=== PATIENT | male | born 1935 | race Caucasian/White ===

== ENCOUNTER 2022-10-05 18:13 | Inpatient (IN) | payer MEDICARE, BC ==
[2022-10-05] MEDS ORDERED: Loperamide HCl 2 MG CAP PO PRN (20:30)
[2022-10-05] MEDS ORDERED: Albuterol 200 PUFF (6.7GM INHALER) INH PRN (20:30)
[2022-10-05] MEDS ORDERED: Ondansetron ODT 4 MG TAB PO PRN (20:35)
[2022-10-05] MEDS ORDERED: HYDROcodone/Acetaminophen 10/325 mg Tablet PO PRN (20:35)
[2022-10-05] MEDS: Lisinopril 20 MG TAB PO SCH (22:32)
[2022-10-05] MEDS: Temazepam 15 MG CAP PO PRN (22:32)
[2022-10-05] MEDS: Sodium Bicarbonate Tab 325 MG TAB PO SCH (22:33)
[2022-10-05] MEDS: Metoprolol Tartrate 25 MG TAB PO SCH (22:33)
[2022-10-05] MEDS: Apixaban 2.5 MG TAB PO SCH (22:33)
[2022-10-05] MEDS: Guaifenesin DM 100-10/5 ML UDCUP PO PRN (22:50)
[2022-10-06] MEDS ORDERED: cefTRIAXone\\ROCEPHIN 2 GM VIAL IVPB SCH (08:00)
[2022-10-06] MEDS: Sodium Bicarbonate Tab 325 MG TAB PO SCH ×3 (09:42→20:50)
[2022-10-06] MEDS: Saccharomyces boulardii 250 MG CAP PO SCH (09:43)
[2022-10-06] MEDS: Dronedarone HCl 400 MG TAB PO SCH ×2 (09:43→17:08)
[2022-10-06] MEDS: Amlodipine 5 MG TAB PO SCH (09:43)
[2022-10-06] MEDS: Zinc Sulfate 220 MG CAP PO SCH (09:43)
[2022-10-06] MEDS: Dexamethasone 4 mg/ml Vial SLOW IVP SCH (09:44)
[2022-10-06] MEDS: Cholecalciferol (Vitamin D3) 400 UNITS TAB PO SCH (09:44)
[2022-10-06] MEDS: Lisinopril 20 MG TAB PO SCH ×2 (09:44→20:50)
[2022-10-06] MEDS: Apixaban 2.5 MG TAB PO SCH ×2 (09:45→20:50)
[2022-10-06] MEDS: cefTRIAXone\\ROCEPHIN 2 GM in Sodium Chloride 0.9% 100 ML IVPB SCH (09:45)
[2022-10-06] MEDS: Metoprolol Tartrate 25 MG TAB PO SCH ×2 (10:06→20:51)
[2022-10-06] MEDS: Guaifenesin DM 100-10/5 ML UDCUP PO PRN (20:50)
[2022-10-06] MEDS: Albuterol 200 PUFF (6.7GM INHALER) INH PRN (20:51)
[2022-10-06] MEDS: Temazepam 15 MG CAP PO PRN (21:51)
[2022-10-07] MEDS: Dexamethasone 4 mg/ml Vial SLOW IVP SCH (09:02)
[2022-10-07] MEDS: Amlodipine 5 MG TAB PO SCH (09:04)
[2022-10-07] MEDS: Cholecalciferol (Vitamin D3) 400 UNITS TAB PO SCH (09:04)
[2022-10-07] MEDS: Dronedarone HCl 400 MG TAB PO SCH ×2 (09:04→17:22)
[2022-10-07] MEDS: Apixaban 2.5 MG TAB PO SCH ×2 (09:04→20:44)
[2022-10-07] MEDS: Zinc Sulfate 220 MG CAP PO SCH (09:04)
[2022-10-07] MEDS: Sodium Bicarbonate Tab 325 MG TAB PO SCH ×3 (09:04→20:44)
[2022-10-07] MEDS: Saccharomyces boulardii 250 MG CAP PO SCH (09:05)
[2022-10-07] MEDS: Lisinopril 20 MG TAB PO SCH ×2 (09:05→20:43)
[2022-10-07] MEDS: cefTRIAXone\\ROCEPHIN 2 GM in Sodium Chloride 0.9% 100 ML IVPB SCH (09:05)
[2022-10-07] MEDS: Albuterol 200 PUFF (6.7GM INHALER) INH PRN (09:14)
[2022-10-07] MEDS: Metoprolol Tartrate 25 MG TAB PO SCH (09:15)
[2022-10-07] MEDS: Temazepam 15 MG CAP PO PRN (20:44)
[2022-10-08] MEDS: Metoprolol Tartrate 25 MG TAB PO SCH ×3 (02:57→21:11)
[2022-10-08] MEDS: Dexamethasone 4 mg/ml Vial SLOW IVP SCH (09:21)
[2022-10-08] MEDS: cefTRIAXone\\ROCEPHIN 2 GM in Sodium Chloride 0.9% 100 ML IVPB SCH (09:21)
[2022-10-08] MEDS: Saccharomyces boulardii 250 MG CAP PO SCH (09:24)
[2022-10-08] MEDS: Sodium Bicarbonate Tab 325 MG TAB PO SCH ×3 (09:24→21:07)
[2022-10-08] MEDS: Zinc Sulfate 220 MG CAP PO SCH (09:24)
[2022-10-08] MEDS: Lisinopril 20 MG TAB PO SCH ×2 (09:24→21:11)
[2022-10-08] MEDS: Cholecalciferol (Vitamin D3) 400 UNITS TAB PO SCH (09:24)
[2022-10-08] MEDS: Apixaban 2.5 MG TAB PO SCH ×2 (09:24→21:07)
[2022-10-08] MEDS: Dronedarone HCl 400 MG TAB PO SCH ×2 (09:25→17:12)
[2022-10-08] MEDS: Amlodipine 5 MG TAB PO SCH (09:25)
[2022-10-08] MEDS ORDERED: HYDROcodone/Acetaminophen 10/325 mg Tablet PO PRN (12:40)
[2022-10-08] MEDS: Temazepam 15 MG CAP PO PRN (21:07)
[2022-10-09] MEDS: Sodium Bicarbonate Tab 325 MG TAB PO SCH ×3 (08:08→21:21)
[2022-10-09] MEDS: Apixaban 2.5 MG TAB PO SCH ×2 (08:08→21:21)
[2022-10-09] MEDS: Dronedarone HCl 400 MG TAB PO SCH ×2 (08:08→17:01)
[2022-10-09] MEDS: Saccharomyces boulardii 250 MG CAP PO SCH (08:08)
[2022-10-09] MEDS: Zinc Sulfate 220 MG CAP PO SCH (08:08)
[2022-10-09] MEDS: Cholecalciferol (Vitamin D3) 400 UNITS TAB PO SCH (08:08)
[2022-10-09] MEDS ORDERED: Dexamethasone 4 mg/ml Vial SLOW IVP SCH (09:00)
[2022-10-09] MEDS: Amlodipine 5 MG TAB PO SCH (09:21)
[2022-10-09] MEDS: Lisinopril 20 MG TAB PO SCH (09:38)
[2022-10-09] MEDS: Metoprolol Tartrate 25 MG TAB PO SCH (09:38)
[2022-10-09] MEDS ORDERED: Lisinopril 20 MG TAB PO SCH (10:00)
[2022-10-09] MEDS: Temazepam 15 MG CAP PO PRN (21:21)
[2022-10-10] MEDS: Dexamethasone 4 MG TAB PO SCH (09:15)
[2022-10-10] MEDS: Sodium Bicarbonate Tab 325 MG TAB PO SCH ×3 (09:15→21:22)
[2022-10-10] MEDS: Dronedarone HCl 400 MG TAB PO SCH ×2 (09:15→17:22)
[2022-10-10] MEDS: Apixaban 2.5 MG TAB PO SCH ×2 (09:16→21:23)
[2022-10-10] MEDS: Zinc Sulfate 220 MG CAP PO SCH (09:16)
[2022-10-10] MEDS: Saccharomyces boulardii 250 MG CAP PO SCH (09:16)
[2022-10-10] MEDS: Lisinopril 20 MG TAB PO SCH (09:16)
[2022-10-10] MEDS: Cholecalciferol (Vitamin D3) 400 UNITS TAB PO SCH (09:16)
[2022-10-10] MEDS: Guaifenesin DM 100-10/5 ML UDCUP PO PRN (15:37)
[2022-10-10] MEDS: Benzonatate 100 MG CAP PO PRN (21:22)
[2022-10-10] MEDS: Senokot S 8.6-50 MG TAB PO SCH (21:22)
[2022-10-10] MEDS: Acetaminophen 325 MG TAB PO PRN (21:23)
[2022-10-10] MEDS: Temazepam 15 MG CAP PO PRN (21:23)
[2022-10-11] MEDS: Dexamethasone 4 MG TAB PO SCH (08:50)
[2022-10-11] MEDS: Lisinopril 20 MG TAB PO SCH (08:51)
[2022-10-11] MEDS: Senokot S 8.6-50 MG TAB PO SCH ×2 (08:51→21:28)
[2022-10-11] MEDS: Dronedarone HCl 400 MG TAB PO SCH ×2 (08:51→17:27)
[2022-10-11] MEDS: Cholecalciferol (Vitamin D3) 400 UNITS TAB PO SCH (08:51)
[2022-10-11] MEDS: Sodium Bicarbonate Tab 325 MG TAB PO SCH ×4 (08:51→21:28)
[2022-10-11] MEDS: Apixaban 2.5 MG TAB PO SCH ×2 (08:51→21:28)
[2022-10-11] MEDS: Zinc Sulfate 220 MG CAP PO SCH (08:51)
[2022-10-11] MEDS: Saccharomyces boulardii 250 MG CAP PO SCH (08:51)
[2022-10-11] MEDS: Guaifenesin DM 100-10/5 ML UDCUP PO PRN ×2 (08:56→17:27)
[2022-10-11] MEDS: Benzonatate 100 MG CAP PO PRN (21:27)
[2022-10-11] MEDS: Temazepam 15 MG CAP PO PRN (21:28)
[2022-10-12] MEDS: Zinc Sulfate 220 MG CAP PO SCH (08:10)
[2022-10-12] MEDS: Saccharomyces boulardii 250 MG CAP PO SCH (08:10)
[2022-10-12] MEDS: Dronedarone HCl 400 MG TAB PO SCH ×2 (08:10→16:11)
[2022-10-12] MEDS: Dexamethasone 4 MG TAB PO SCH (08:10)
[2022-10-12] MEDS: Sodium Bicarbonate Tab 325 MG TAB PO SCH ×3 (08:10→20:33)
[2022-10-12] MEDS: Cholecalciferol (Vitamin D3) 400 UNITS TAB PO SCH (08:11)
[2022-10-12] MEDS: Senokot S 8.6-50 MG TAB PO SCH ×3 (08:11→20:37)
[2022-10-12] MEDS: Lisinopril 20 MG TAB PO SCH ×2 (08:11→20:46)
[2022-10-12] MEDS: Apixaban 2.5 MG TAB PO SCH ×2 (08:11→20:33)
[2022-10-12] MEDS: Temazepam 15 MG CAP PO PRN (20:46)
[2022-10-13] MEDS: Apixaban 2.5 MG TAB PO SCH ×2 (09:15→20:37)
[2022-10-13] MEDS: Senokot S 8.6-50 MG TAB PO SCH ×2 (09:15→20:49)
[2022-10-13] MEDS: Sodium Bicarbonate Tab 325 MG TAB PO SCH ×3 (09:15→20:37)
[2022-10-13] MEDS: Saccharomyces boulardii 250 MG CAP PO SCH (09:15)
[2022-10-13] MEDS: Zinc Sulfate 220 MG CAP PO SCH (09:15)
[2022-10-13] MEDS: Cholecalciferol (Vitamin D3) 400 UNITS TAB PO SCH ×2 (09:15→09:47)
[2022-10-13] MEDS: Dexamethasone 4 MG TAB PO SCH (09:15)
[2022-10-13] MEDS: Lisinopril 20 MG TAB PO SCH ×3 (09:45→21:45)
[2022-10-13] MEDS: Dronedarone HCl 400 MG TAB PO SCH ×2 (09:47→17:09)
[2022-10-13] MEDS: Metoprolol Tartrate 25 MG TAB PO SCH ×2 (12:39→20:33)
[2022-10-13] MEDS: Temazepam 15 MG CAP PO PRN (20:37)
[2022-10-13] MEDS: Albuterol 200 PUFF (6.7GM INHALER) INH PRN (20:38)
[2022-10-14] MEDS: Apixaban 2.5 MG TAB PO SCH ×2 (08:25→20:21)
[2022-10-14] MEDS: Sodium Bicarbonate Tab 325 MG TAB PO SCH ×2 (08:25→15:06)
[2022-10-14] MEDS: Lisinopril 20 MG TAB PO SCH ×2 (08:25→23:51)
[2022-10-14] MEDS: Dronedarone HCl 400 MG TAB PO SCH ×2 (08:25→17:07)
[2022-10-14] MEDS: Saccharomyces boulardii 250 MG CAP PO SCH (08:26)
[2022-10-14] MEDS: Zinc Sulfate 220 MG CAP PO SCH (08:26)
[2022-10-14] MEDS: Senokot S 8.6-50 MG TAB PO SCH ×2 (08:26→20:23)
[2022-10-14] MEDS: Cholecalciferol (Vitamin D3) 400 UNITS TAB PO SCH (08:26)
[2022-10-14] MEDS: Metoprolol Tartrate 25 MG TAB PO SCH ×2 (12:34→20:23)
[2022-10-14] MEDS ORDERED: Hydrochlorothiazide 25 MG TAB PO SCH (13:00)
[2022-10-14] MEDS: Albuterol 200 PUFF (6.7GM INHALER) INH PRN (20:21)
[2022-10-14] MEDS: Guaifenesin DM 100-10/5 ML UDCUP PO PRN (20:26)
[2022-10-14] MEDS: Temazepam 15 MG CAP PO PRN (21:16)
[2022-10-15] MEDS: Benzonatate 100 MG CAP PO PRN (04:52)
[2022-10-15 05:03] LABS: Anion Gap 12 mmol/L (10-20); BUN (Urea Nitrogen) 43 mg/dL (8.4-25.7); Calc. Creatinine Clearance 38 mL/min (70-130); Calcium 7.9 mg/dL (7.8-10.44); Carbon Dioxide 24 mmol/L (23-31); Chloride 110 mmol/L (98-107); Estimated GFR 43; Glucose 72 mg/dL (83-110); Potassium 5.4 mmol/L (3.5-5.1); Sodium 141 mmol/L (136-145)
[2022-10-15] MEDS: Cholecalciferol (Vitamin D3) 400 UNITS TAB PO SCH (08:51)
[2022-10-15] MEDS: Lisinopril 20 MG TAB PO SCH ×2 (08:51→20:40)
[2022-10-15] MEDS: Senokot S 8.6-50 MG TAB PO SCH ×2 (08:51→20:39)
[2022-10-15] MEDS: Apixaban 2.5 MG TAB PO SCH ×2 (08:51→20:40)
[2022-10-15] MEDS: Saccharomyces boulardii 250 MG CAP PO SCH (08:52)
[2022-10-15] MEDS: Hydrochlorothiazide 25 MG TAB PO SCH (08:52)
[2022-10-15] MEDS: Zinc Sulfate 220 MG CAP PO SCH (08:52)
[2022-10-15] MEDS: Metoprolol Tartrate 25 MG TAB PO SCH ×2 (13:15→20:39)
[2022-10-15] MEDS ORDERED: Loratadine 10 MG TAB PO SCH (13:30)
[2022-10-15] MEDS: Dronedarone HCl 400 MG TAB PO SCH ×3 (13:37→20:38)
[2022-10-15] MEDS: Guaifenesin DM 100-10/5 ML UDCUP PO PRN (20:37)
[2022-10-15] MEDS: Temazepam 15 MG CAP PO PRN (20:39)
[2022-10-16 07:47] LABS: Hemoglobin 9.2 g/dL (14.0-18.0); Platelet Count 164 10x3/uL (130-400)
[2022-10-16 07:59] LABS: Anion Gap 12 mmol/L (10-20); BUN (Urea Nitrogen) 39 mg/dL (8.4-25.7); Calc. Creatinine Clearance 38 mL/min (70-130); Calcium 8.2 mg/dL (7.8-10.44); Carbon Dioxide 26 mmol/L (23-31); Chloride 107 mmol/L (98-107); Estimated GFR 43; Glucose 75 mg/dL (83-110); Sodium 140 mmol/L (136-145)
[2022-10-16] MEDS: Saccharomyces boulardii 250 MG CAP PO SCH (10:13)
[2022-10-16] MEDS: Zinc Sulfate 220 MG CAP PO SCH (10:13)
[2022-10-16] MEDS: Loratadine 10 MG TAB PO SCH (10:13)
[2022-10-16] MEDS: Dronedarone HCl 400 MG TAB PO SCH ×2 (10:14→17:22)
[2022-10-16] MEDS: Senokot S 8.6-50 MG TAB PO SCH ×2 (10:14→21:26)
[2022-10-16] MEDS: Lisinopril 20 MG TAB PO SCH ×2 (10:14→21:22)
[2022-10-16] MEDS: Metoprolol Tartrate 25 MG TAB PO SCH ×2 (10:14→21:21)
[2022-10-16] MEDS: Apixaban 2.5 MG TAB PO SCH ×2 (10:15→21:22)
[2022-10-16] MEDS: Hydrochlorothiazide 25 MG TAB PO SCH (10:15)
[2022-10-16] MEDS: Cholecalciferol (Vitamin D3) 400 UNITS TAB PO SCH (10:55)
[2022-10-16] MEDS: Guaifenesin DM 100-10/5 ML UDCUP PO PRN (21:20)
[2022-10-16] MEDS: Melatonin 3 MG TAB PO PRN (21:22)
[2022-10-17] MEDS: Zinc Sulfate 220 MG CAP PO SCH (08:10)
[2022-10-17] MEDS: Saccharomyces boulardii 250 MG CAP PO SCH (08:11)
[2022-10-17] MEDS: Cholecalciferol (Vitamin D3) 400 UNITS TAB PO SCH (08:11)
[2022-10-17] MEDS: Dronedarone HCl 400 MG TAB PO SCH ×2 (08:11→16:57)
[2022-10-17] MEDS: Apixaban 2.5 MG TAB PO SCH ×2 (08:11→20:39)
[2022-10-17] MEDS: Hydrochlorothiazide 25 MG TAB PO SCH (08:11)
[2022-10-17] MEDS: Metoprolol Tartrate 25 MG TAB PO SCH ×2 (08:11→20:41)
[2022-10-17] MEDS: Loratadine 10 MG TAB PO SCH (08:11)
[2022-10-17] MEDS: Lisinopril 20 MG TAB PO SCH ×2 (08:11→20:40)
[2022-10-17] MEDS: Senokot S 8.6-50 MG TAB PO SCH ×2 (08:11→20:38)
[2022-10-17] MEDS: Melatonin 3 MG TAB PO PRN (20:39)
[2022-10-17] MEDS: Temazepam 15 MG CAP PO PRN (20:45)
[2022-10-18] MEDS: Saccharomyces boulardii 250 MG CAP PO SCH (08:22)
[2022-10-18] MEDS: Dronedarone HCl 400 MG TAB PO SCH ×2 (08:22→17:09)
[2022-10-18] MEDS: Hydrochlorothiazide 25 MG TAB PO SCH (08:22)
[2022-10-18] MEDS: Metoprolol Tartrate 25 MG TAB PO SCH ×2 (08:23→20:30)
[2022-10-18] MEDS: Loratadine 10 MG TAB PO SCH (08:23)
[2022-10-18] MEDS: Cholecalciferol (Vitamin D3) 400 UNITS TAB PO SCH (08:23)
[2022-10-18] MEDS: Zinc Sulfate 220 MG CAP PO SCH (08:23)
[2022-10-18] MEDS: Apixaban 2.5 MG TAB PO SCH ×2 (08:23→20:30)
[2022-10-18] MEDS: Senokot S 8.6-50 MG TAB PO SCH ×2 (08:23→20:30)
[2022-10-18] MEDS: Lisinopril 20 MG TAB PO SCH ×2 (08:23→20:30)
[2022-10-18 12:16] VITALS: BMI 23.5
[2022-10-18] MEDS: Guaifenesin DM 100-10/5 ML UDCUP PO PRN (20:28)
[2022-10-18] MEDS: Temazepam 15 MG CAP PO PRN (20:29)
[2022-10-18] MEDS: Melatonin 3 MG TAB PO PRN (20:30)
[2022-10-19] MEDS: Saccharomyces boulardii 250 MG CAP PO SCH (07:55)
[2022-10-19] MEDS: Cholecalciferol (Vitamin D3) 400 UNITS TAB PO SCH (07:55)
[2022-10-19] MEDS: Loratadine 10 MG TAB PO SCH (07:55)
[2022-10-19] MEDS: Dronedarone HCl 400 MG TAB PO SCH ×2 (07:55→16:54)
[2022-10-19] MEDS: Lisinopril 20 MG TAB PO SCH ×2 (07:55→20:42)
[2022-10-19] MEDS: Apixaban 2.5 MG TAB PO SCH ×2 (07:55→20:42)
[2022-10-19] MEDS: Zinc Sulfate 220 MG CAP PO SCH (07:55)
[2022-10-19] MEDS: Senokot S 8.6-50 MG TAB PO SCH ×2 (07:56→20:43)
[2022-10-19] MEDS: Hydrochlorothiazide 25 MG TAB PO SCH (07:56)
[2022-10-19] MEDS: Metoprolol Tartrate 25 MG TAB PO SCH ×2 (07:56→20:43)
[2022-10-19] MEDS: Acetaminophen 325 MG TAB PO PRN (08:05)
[2022-10-19] MEDS: Temazepam 15 MG CAP PO PRN (20:44)
[2022-10-19] MEDS: Guaifenesin DM 100-10/5 ML UDCUP PO PRN (20:44)
[2022-10-20] MEDS: Albuterol 200 PUFF (6.7GM INHALER) INH PRN
[2022-10-20] MEDS: Dronedarone HCl 400 MG TAB PO SCH ×2 (08:31→17:08)
[2022-10-20] MEDS: Lisinopril 20 MG TAB PO SCH ×2 (08:31→20:14)
[2022-10-20] MEDS: Metoprolol Tartrate 25 MG TAB PO SCH ×2 (08:31→20:15)
[2022-10-20] MEDS: Zinc Sulfate 220 MG CAP PO SCH (08:31)
[2022-10-20] MEDS: Loratadine 10 MG TAB PO SCH (08:32)
[2022-10-20] MEDS: Hydrochlorothiazide 25 MG TAB PO SCH (08:32)
[2022-10-20] MEDS: Cholecalciferol (Vitamin D3) 400 UNITS TAB PO SCH (08:32)
[2022-10-20] MEDS: Saccharomyces boulardii 250 MG CAP PO SCH (08:32)
[2022-10-20] MEDS: Apixaban 2.5 MG TAB PO SCH ×2 (08:32→20:15)
[2022-10-20] MEDS: Acetaminophen 325 MG TAB PO PRN (08:32)
[2022-10-20] MEDS: Senokot S 8.6-50 MG TAB PO SCH ×2 (08:32→20:15)
[2022-10-20] MEDS: Temazepam 15 MG CAP PO PRN (20:14)
[2022-10-20] MEDS: Benzonatate 100 MG CAP PO PRN ×2 (22:22)
[2022-10-21] MEDS: Acetaminophen 325 MG TAB PO PRN ×2 (03:40→13:17)
[2022-10-21] MEDS: Cholecalciferol (Vitamin D3) 400 UNITS TAB PO SCH (09:18)
[2022-10-21] MEDS: Saccharomyces boulardii 250 MG CAP PO SCH (09:18)
[2022-10-21] MEDS: Senokot S 8.6-50 MG TAB PO SCH ×2 (09:18→20:51)
[2022-10-21] MEDS: Dronedarone HCl 400 MG TAB PO SCH ×2 (09:18→17:00)
[2022-10-21] MEDS: Zinc Sulfate 220 MG CAP PO SCH (09:18)
[2022-10-21] MEDS: Apixaban 2.5 MG TAB PO SCH ×2 (09:18→20:50)
[2022-10-21] MEDS: Loratadine 10 MG TAB PO SCH (09:18)
[2022-10-21] MEDS: Lisinopril 20 MG TAB PO SCH ×2 (09:19→20:50)
[2022-10-21] MEDS: Hydrochlorothiazide 25 MG TAB PO SCH (09:19)
[2022-10-21] MEDS: Metoprolol Tartrate 25 MG TAB PO SCH ×2 (09:19→20:50)
[2022-10-21] MEDS: Temazepam 15 MG CAP PO PRN (20:53)
[2022-10-21] MEDS: Benzonatate 100 MG CAP PO PRN (20:57)
[2022-10-22] MEDS: Acetaminophen 325 MG TAB PO PRN (05:14)
[2022-10-22] MEDS: Dronedarone HCl 400 MG TAB PO SCH (08:09)
[2022-10-22] MEDS: Hydrochlorothiazide 25 MG TAB PO SCH (08:09)
[2022-10-22] MEDS: Cholecalciferol (Vitamin D3) 400 UNITS TAB PO SCH (08:09)
[2022-10-22] MEDS: Loratadine 10 MG TAB PO SCH (08:09)
[2022-10-22] MEDS: Metoprolol Tartrate 25 MG TAB PO SCH (08:09)
[2022-10-22] MEDS: Lisinopril 20 MG TAB PO SCH (08:09)
[2022-10-22] MEDS: Apixaban 2.5 MG TAB PO SCH (08:09)
[2022-10-22] MEDS: Saccharomyces boulardii 250 MG CAP PO SCH (08:09)
[2022-10-22] MEDS: Zinc Sulfate 220 MG CAP PO SCH (08:09)
[2022-10-22] MEDS: Senokot S 8.6-50 MG TAB PO SCH (08:10)
[2022-10-22] MEDS ORDERED: Acetaminophen 325 MG TAB PO PRN (13:46)
[2022-10-22] MEDS ORDERED: Albuterol 200 PUFF (6.7GM INHALER) INH PRN (13:55)
[2022-10-22 15:30] VITALS: BP 146/56; TEMP 98.8
== END 2022-10-22 15:32 | disposition home or self-care (01) | DRG 947 ==
LOC: MADMS 19:15
PROVIDERS: ADMIT Emergency Medicine; ATTEND Family Medicine
DX: R53.81 Other malaise (principal); J15.4 Pneumonia due to other streptococci; N17.9 Acute kidney failure, unspecified; J96.11 Chronic respiratory failure with hypoxia; C85.90 Non-Hodgkin lymphoma, unspecified, unspecified site; K52.1 Toxic gastroenteritis and colitis; J90 Pleural effusion, not elsewhere classified; J81.1 Chronic pulmonary edema; I12.9 Hypertensive chronic kidney disease with stage 1 through stage 4 chronic kidney disease, or unspecified chronic kidney disease; T36.95XA Adverse effect of unspecified systemic antibiotic, initial encounter; I48.0 Paroxysmal atrial fibrillation; G47.00 Insomnia, unspecified; R00.1 Bradycardia, unspecified; I95.2 Hypotension due to drugs; E87.5 Hyperkalemia; N18.31 Chronic kidney disease, stage 3a; Z79.899 Other long term (current) drug therapy; Z90.89 Acquired absence of other organs; Z86.16 Personal history of COVID-19; Z87.01 Personal history of pneumonia (recurrent)
CPT/HCPCS: 36415; 71046; 80048; 85014; 85018; 85049; J0696; J1100; J3490; J8540

== ENCOUNTER 2022-10-31 16:36 | Outpatient (CLI) | payer MEDICARE, BC | END 2022-10-31 16:37 | disposition home or self-care (01) | LOC: MADRAD 16:36 | PROVIDERS: ATTEND Registered Nurse | DX: J13 Pneumonia due to Streptococcus pneumoniae (principal); J90 Pleural effusion, not elsewhere classified | CPT/HCPCS: 71046 ==